=== PATIENT | female | born 1970 | race Caucasian/White ===

== ENCOUNTER 2017-03-16 21:05 | Emergency (ER) | payer OTHER ==
[~2017-03-16] VITALS: Ht 175.3 cm; Wt 69.5 kg
[~2017-03-16 21:05] MED LIST: NO ACTIVE MEDS
[2017-03-16 21:07] VITALS: BP 149/89; PULSE 67; RESP 16; O2SAT 100
--- NOTE | 2017-03-16 21:17 | ED.REPORT ---
HPI-Chest Pain 40 and Over Date of Service Mar 16, 2017 ED Provider: Roderick Butts MD Pt is a 46 y/o with a history of hypothyroidism and hyperlipidemia who presents to the ED c/o of intermittent midsternal chest pain onset 10 days ago. Her episode tonight lasted for three hours, and she describes her pain as an uncomfortable, heavy pressure that de leon. She denies nausea, difficulty breathing, numbness/tingling, fevers, cough, abdominal pain, or neck pain. She says she is chronically stressed, but doesn't believe it is related. Has been taking baby aspirin for a year. Nursing Notes Stated Complaint: CHEST PAIN Chief Complaint: Chest Pain Nursing Notes Reviewed: Yes Allergies: Coded Allergies: latex (Verified Allergy, Unknown, 03/16/17) morphine (Verified Allergy, Unknown, 03/16/17) Uncoded Allergies: SULFA (Allergy, Unknown, 05/24/14) Scheduled Omeprazole (Omeprazole) 40 Mg Capsule.dr 40 MG PO DAILY Miscellaneous Medications ([No Active Meds]) General Time Seen by MD: 21:16 Chief Complaint Chest pain Hx Obtained From: Patient Sudden in Onset?: No Onset Occurred: More than a week ago... Symptom Duration: Intermittent Quality: Burning, Heaviness, Pressure Severity: Current: Mild Severity: Maximum: Moderate Recent Healthcare: No recent doctor visit, No recent hospitalization Similar Sx Previous: No Past Medical History Past Medical History Father had heart attack at 51 Hypothyroidism Hyperlipidemia Past Surgical History Denies Smoking History Unknown if Ever Smoker Social History Other Social History: Good social support Ambulatory Status Independent Review of Systems Constitutional: Denies: Fever Respiratory: Denies: Non-productive cough, Prod cough, clear, Shortness of breath Cardiovascular: Reports: Chest pain GI: Denies: Abdominal pain, Nausea Musculoskeletal: Denies: Neck pain Neurologic: Denies: Numbness Complete sys rev & neg: except as marked. Physical Exam Initial Vital Signs Vital Signs (First) Date Time Temp Pulse Resp B/P Pulse Ox O2 Delivery O2 Flow Rate FiO2 03/16/17 21:07 36.6 67 16 149/89 100 Room Air Initial VS: Reviewed Head / Eyes: Atraumatic, Normocephalic Extremities: Vascular intact, Neuro intact, No swelling, No tenderness Skin: Warm, Dry, No cyanosis Neurologic: Alert, Oriented, Nonfocal Psychiatric: Mood/affect normal, Behavior normal, Normal thought content General/Constitutional: Awake, Alert Respiratory / Chest: Atraumatic, Breath sounds NL, Breath sounds = bilat, No respiratory distress PERC negative Cardiovascular: Heart rate NL, Regular rhythm, Heart sounds NL, No murmurs No lower leg edema Abdomen: Soft, Non-tender Interpretation & Diagnostics Lab Results Interpretation Result Diagram: 03/16/17214903/16/172149 Test 03/16/17 21:50 03/16/17 21:53 03/16/17 23:50 White Blood Count 6.1th/mm3 (3.8-10.1) Red Blood Count 4.83mil/mm3 (3.90-5.20) Hemoglobin 14.5g/dL (12.0-15.6) Hematocrit 42.5% (35.0-46.0) Mean Corpuscular Volume 88.0fL (81-100) Mean Corpuscular Hemoglobin 30.0pg (27.0-35.0) Mean Corpuscular Hemoglobin Concent 34.1% (32.0-37.0) Red Cell Distribution Width 13.1% (12.3-15.4) Platelet Count 159bil/L (150-400) Neutrophils (%) (Auto) 51.5% (40-74) Lymphocytes (%) (Auto) 37.1% (14-46) Monocytes (%) (Auto) 8.5% (4-12) Eosinophils (%) (Auto) 2.5% (0-5) Basophils (%) (Auto) 0.2% (0-3) Sodium Level 140mEq/L (134-144) Potassium Level 4.0mEq/L (3.5-5.2) Chloride Level 102mEq/L (97-108) Carbon Dioxide Level 23mmol/L (18-29) Blood Urea Nitrogen 11mg/dL (6-24) Creatinine 0.72mg/dL (0.57-1.00) Estimat Glomerular Filtration Rate 125mL/min (>59) Glucose Level 104mg/dL (60-99) Calcium Level 9.0mg/dL (8.5-10.1) Magnesium Level 2.1mg/dL (1.6-2.6) Total Bilirubin 0.5mg/dL (0.0-1.2) Aspartate Amino Transf (AST/SGOT) 27U/L (0-50) Alanine Aminotransferase (ALT/SGPT) 18U/L (0-32) Alkaline Phosphatase 47U/L (25-150) Total Protein 7.3g/dL (6.4-8.4) Albumin 4.5g/dL (3.4-5.0) Hold Buchanan Top Tube Received (Received) Troponin T 0.010ug/L (0.0-0.011) ECG Interpretation ECG Interpretation: Sinus rhythm, rate [address] changes Time: 21:21 Interpreted by: ED physician X-Ray Chest Interpretation Chest Xray Interpretation: IMPRESSION: Normal for age, source of chest pain is not found. Dictated by: Oscar Chase M.D. on 03/16/2017 at 21:46 Approved by: Oscar Chase M.D. on 03/16/2017 at 21:47 View: Portable, 1 view Re-Eval/Medical Decision Med Decision/Clinical Course 46-year-old female history of hypothyroidism hyperlipidemia presenting with intermittent chest pain times several weeks. It is been present for most the day today burning sensation in her epigastric region in her throat. Her symptoms improved with GI cocktail. Suspect gastritis. Her troponins are negative 2. She is perc negative. I discussed with the patient the option for staying in the hospital overnight she requested to go home for follow-up with primary doctor for possible outpatient stress test. She will be treated with PPI and Tums as needed. Daily aspirin. Source of Hx: Old records Time of Eval: 23:32 Re-Evaluation/Progress Note: Pt rechecked. Discussed all labs and imaging results. Pt wishes to stay longer and repeat Troponin levels. Time of Eval: 00:56 Patient Status: Condition improved Re-Evaluation/Progress Note: Pt rechecked. Discussed plan for discharge. Pt agrees and understands plan. Gave all RTER and follow-up directions. All questions addresssed at this time. Counseled Regarding: Diagnosis, Lab results, Need for follow-up, When/why to return to ED Discharge & Departure Primary Impression: Chest pain Chest pain type: unspecified Qualified Code: R07.9 - Chest pain, unspecified Disposition: Home Discharge Condition All VS Reviewed: Yes Condition: Stable Patient Instructions: Chest Pain (ED) Additional Instructions: Your labs and chest x-ray today was reassuring and not concerning. We have determined that there is no risk factor for a blood clot today. You have decided to go home. Please follow-up with your primary care doctor in the next few days for a recheck. I recommend an outpatient stress test to check your symptoms. Take the medications as prescribed to rule out any gastritis which may be causing your symptoms. Return to the emergency department for any new or worsening symptoms, including fever, nausea, vomiting, difficulty breathing, or worsening chest pain. Referrals: Deven Roca DO (PCP) Scribe Attestation Portions of this note were transcribed by Dorene Brown. I, Dr. Butts personally performed the history, physical exam and medical decision-making; I reviewed and confirmed the accuracy of the information in the transcribed note. copies to: Deven Roca Ben M MD Mar 16, 2017 21:17 Dorene Brown Mar 16, 2017 21:40
[2017-03-16 21:33] VITALS: BP 119/75; PULSE 80; RESP 20; O2SAT 97
[2017-03-16] MEDS ORDERED: LidocaineVisc 2%:Antacid 1:1 10 mL Syringe PO ONE (21:40)
--- NOTE | 2017-03-16 21:49 | DRSVH ---
PROCEDURE: X-RAY CHEST ONE VIEW, PORTABLE ([id number]) INDICATIONS: chest pain TECHNIQUE: One view of the chest was acquired. COMPARISON: None. FINDINGS: Surgical changes and devices: None. Lungs and pleura: No pleural effusions or pneumothorax. Lungs are clear. Mediastinum: Mediastinal contours appear normal. Heart size is normal. Bones and chest wall: No suspicious bony lesions. Overlying soft tissues appear unremarkable. IMPRESSION: Normal for age, source of chest pain is not found. Dictated by: Oscar Chase M.D. on 03/16/2017 at 21:46 Approved by: Oscar Chase M.D. on 03/16/2017 at 21:47
[2017-03-16 21:56] LABS: BASOPHILS % (AUTO) 0.2 % (0-3); EOSINOPHILS % (AUTO) 2.5 % (0-5); MONOCYTES % (AUTO) 8.5 % (4-12); NEUTROPHILS % (AUTO) 51.5 % (40-74); Platelet Count 159 bil/L (150-400)
[2017-03-16 22:27] LABS: TROPONIN T 0.01 ug/L (0.0-0.011)
[2017-03-16 22:38] LABS: Magnesium 2.1 mg/dL (1.6-2.6)
[2017-03-16 22:57] VITALS: BP 113/69; PULSE 77; RESP 18; O2SAT 96
[2017-03-16 23:53] VITALS: BP 105/70; PULSE 66; RESP 16; O2SAT 96
[2017-03-17] MEDS ORDERED: OMEP40CA36 PO (01:08)
[2017-03-17 01:28] VITALS: BP 105/75; PULSE 60; RESP 14; O2SAT 97
== END 2017-03-17 01:29 | disposition home or self-care (01) ==
LOC: SED 21:05
DX: R07.2 Precordial pain (principal); E03.9 Hypothyroidism, unspecified; E78.5 Hyperlipidemia, unspecified; Z88.5 Allergy status to narcotic agent; Z91.040 Latex allergy status